=== PATIENT | female | born 1990 | race Caucasian/White ===

== ENCOUNTER → 2017-06-03 | Outpatient (CLI) | payer SELFPAY ==
--- NOTE | 2017-06-03 16:48 | RADIOLOGY REPORT (SQ) ---
EXAM DESCRIPTION: U/S OB 14+ TRNABD 1GES W/O DOP COMPLETED DATE/TIME: 06/03/2017 4:11 pm REASON FOR STUDY: ENCOUNTER FOR SUPERVISION OF OTHER NORMAL , SECOND TRIMESTER Z34.82 ENCO UNTER FOR SUPRVSN OF NORMAL , SECOND TRI COMPARISON: None. TECHNIQUE: Static and Dynamic grayscale imaging performed of gravid uterus using transabdominal appr oac. Additional selected color Doppler and spectral images recorded. All stored on PACS. LIMITATIONS: None. FINDINGS: EGA: 27 weeks 3 days CHRISTIAN: 08/30/2017 EFW: 985 +/ - 146 grams PERCENTILE: 31 ANTONIO: 12.1 cm PLACENTA: Anterior PRESENTATION: Cephalic. ANATOMY: HEART RATE: 143 beats per minute. FOUR CHAMBER HEART: Visualized. THREE VESSEL CORD: Yes. CORD INSERTION: Visualized. KIDNEYS AND BLADDER: Visualized. Appear normal. STOMACH: Visualized. Appears normal. SPINE: Normal as visualized. BRAIN AND LATERAL VENTRICLES: Visualized. Appear normal. OTHER: Apparent skin thickening the level of the cervical spine. MATERNAL ADNEXA: Maternal ovaries not visualized. CERVICAL LENGTH: In 0.5 cm. Closed. OTHER: No other significant finding. IMPRESSION: LIVING INTRAUTERINE . ESTIMATED GESTATIONAL AGE 27 WEEKS 3 DAYS APPARENT SKIN THICKENING AT THE LEVEL OF THE CERVICAL SPINE WHICH MAY BE POSITIONAL. RECOMMEND CORRE LATION WITH RISK FACTORS FOR CHROMOSOMAL ANOMALIES. NO ADDITIONAL VISUALIZED ANOMALIES. Trimester of : Second trimester - 13 weeks 1 day to 27 weeks 6 days. TECHNICAL DOCUMENTATION: JOB ID: [id number] [employer]- All Rights Reserved
== END ==
LOC: RAD 14:56
PROVIDERS: ATTEND Nurse Practitioner Women's Health
DX: Z34.82 Encounter for supervision of other normal pregnancy, second trimester (principal)
CPT/HCPCS: 76805

== ENCOUNTER → 2017-08-16 | Outpatient (CLI) | payer SELFPAY ==
--- NOTE | 2017-08-16 15:42 | RADIOLOGY REPORT (SQ) ---
EXAM DESCRIPTION: U/S OB 14+ TRNABD 1GES W/O DOP COMPLETED DATE/TIME: 08/16/2017 3:08 pm REASON FOR STUDY: ENOUNTER FOR SUERVISION OF OTHER NORMAL , THIRD SEMESTER Z34.83 ENCOUNTE R FOR SUPRVSN OF NORMAL , THIRD TRIM COMPARISON: OB ultrasound 06/03/2017 TECHNIQUE: Limited Static and Dynamic grayscale imaging performed of gravid uterus using transabdomi nal approach. Additional selected color Doppler and spectral images recorded. All stored on PACS. LIMITATIONS: None. FINDINGS: EGA: By multiple measurements, the estimated age is 36 weeks 3 days, estimated weigh t 2800 g. Please note that there is possible IUGR, abdominal circumference measures 35 weeks 3 days, BPD measures 37 weeks 3 days. CHRISTIAN: By today's ultrasound, 09/10/2017 EFW: 2,800 grams PERCENTILE: 12 percentile ANTONIO: 10 cm PLACENTA: Fundal GRADE: III PRESENTATION: Cephalic. CERVICAL LENGTH: Not well seen. OTHER: No other significant finding. IMPRESSION: LIVING INTRAUTERINE . ESTIMATED GESTATIONAL AGE by today's measurements is 36 weeks 3 days With a 2 week difference between BPD and abdominal circumference, question IUGR Trimester of : Third trimester - 28 weeks to delivery. TECHNICAL DOCUMENTATION: JOB ID: [id number] [employer]- All Rights Reserved
== END ==
LOC: RAD 14:28
PROVIDERS: ATTEND Nurse Practitioner Women's Health
DX: Z34.83 Encounter for supervision of other normal pregnancy, third trimester (principal)
CPT/HCPCS: 76805

== ENCOUNTER 2017-09-04 17:27 | Inpatient (IN) | payer SELFPAY ==
[2017-09-04] MEDS ORDERED: RINGERS SOLUTION,LACTATED 1,000 ML IV PRN (17:45)
[2017-09-04] MEDS ORDERED: RINGERS SOLUTION,LACTATED 300 ML IV ONE (17:45)
[2017-09-04] MEDS ORDERED: OXYTOCIN/NORMAL SALINE 20 UNIT/1,000 ML RTUINJ IV PRN (17:45)
[2017-09-04 18:31] LABS: HEMATOCRIT 33.1 % (36.0-47.0); HEMOGLOBIN 11.4 g/dL (12.0-15.5); MEAN CORPUSCULAR HEMOGLOBIN 31.4 pg (27.0-33.4); MEAN CORPUSCULAR HGB CONC 34.4 g/dL (32.0-36.0); MEAN CORPUSCULAR VOLUME 91 fl (80-97); PLATELET COUNT 371 10^3/uL (150-450); RED BLOOD COUNT 3.63 10^6/uL (3.72-5.28); RED CELL DISTRIBUTION WIDTH 13.4 % (11.5-14.0); WHITE BLOOD COUNT 12.4 10^3/uL (4.0-10.5)
[2017-09-04 18:38] LABS: AMORPHOUS SEDIMENT,URINE TRACE /HPF; APPEARANCE,URINE CLOUDY; BILIRUBIN,URINE NEGATIVE (NEGATIVE); COLOR,URINE YELLOW; GLUCOSE, URINE NEGATIVE (NEGATIVE); KETONES,URINE NEGATIVE (NEGATIVE); LEUKOCYTE ESTERASE,URINE LARGE (NEGATIVE); NITRITE,URINE NEGATIVE (NEGATIVE); PROTEIN,URINE NEGATIVE (NEGATIVE); URINE SPECIFIC GRAVITY 1.009; UROBILINOGEN,URINE NEGATIVE mg/dL (<2.0)
[2017-09-04] MEDS ORDERED: VANCOMYCIN HCL INJ 1000 MG VIAL ONE (18:41)
[2017-09-04 18:46] LABS: URINE AMPHETAMINES SCREEN NEGATIVE; URINE BARBITURATES SCREEN NEGATIVE; URINE BENZODIAZEPINES SCREEN NEGATIVE; URINE COCAINE SCREEN NEGATIVE; URINE METHADONE SCREEN NEGATIVE; URINE PHENCYCLIDINE SCREEN NEGATIVE
[2017-09-04 18:55] LABS: URINE MARIJUANA (THC) SCREEN UNCONFIRMED POSITIVE
[2017-09-04] MEDS ORDERED: CITRIC ACID/SODIUM CITRATE ORAL SOLN 15 ML UDCUP PO ONE (18:59)
[2017-09-04] MEDS ORDERED: VANCOMYCIN HCL 1,000 MG in DEXTROSE 5%-WATER 250 ML IV ONE (19:00)
[2017-09-04] MEDS ORDERED: CITRIC ACID/SODIUM CITRATE ORAL SOLN 15 ML UDCUP ONE (19:00)
[2017-09-04 19:03] LABS: ABSOLUTE LYMPHOCYTES# (MANUAL) 1.7 10^3/uL (0.5-4.7); ABSOLUTE MONOCYTES # (MANUAL) 0.9 10^3/uL (0.1-1.4); ABSOLUTE NEUTROPHILS# (MANUAL) 9.5 10^3/uL (1.7-8.2); BAND NEUTROPHILS % (MANUAL) 2 % (3-5); BASOPHILS % (MANUAL) 0 % (0-2); EOSINOPHILS % (MANUAL) 2 % (0-6); LYMPHOCYTES % (MANUAL) 14 % (13-45); METAMYELOCYTES % (MANUAL) 1 % (0); MONOCYTES % (MANUAL) 7 % (3-13); SEGMENTED NEUTROPHILS % (MAN) 74 % (42-78); TOTAL CELLS COUNTED 100
[2017-09-04 19:05] LABS: PLATELET COMMENT ADEQUATE; TOXIC GRANULATION SLIGHT
[2017-09-04] MEDS ORDERED: ONDANSETRON HCL INJ/PF 4 MG/2 ML SDV IV ONE (20:07)
[2017-09-04] MEDS ORDERED: ONDANSETRON HCL INJ/PF 4 MG/2 ML SDV ONE (20:08)
[2017-09-04] MEDS ORDERED: FENTANYL CITRATE INJ/PF 100 MCG/2 ML AMPUL ONE (21:06)
[2017-09-04] MEDS ORDERED: PHENYLEPHRINE HCL INJ/PF 10 MG/1 ML SDV ONE (21:06)
[2017-09-04] MEDS ORDERED: EPHEDRINE SULFATE INJ 50 MG/1 ML AMPULE ONE (21:06)
[2017-09-04] MEDS ORDERED: BUPIVACAINE HCL 0.25 % INJ/PF (2.5 MG/1 ML) 30 ML VIAL ONE (21:07)
[2017-09-04] MEDS ORDERED: FENTANYL/BUPIVACAINE/NS/PF 200 MCG/100 ML RTUINJ EPI ONE (21:07)
[2017-09-04] MEDS ORDERED: OXYTOCIN/NORMAL SALINE 20 UNIT/1,000 ML RTUINJ ONE (21:08)
[2017-09-04] MEDS ORDERED: LIDOCAINE 1% INJ-PF (10 MG/ML) 30 ML SDV ONE (21:08)
[2017-09-04] MEDS ORDERED: MISOPROSTOL 0.2 MG TABLET ONE (21:08)
[2017-09-04] MEDS ORDERED: MAG HYDROX/AL HYDROX/SIMETH SUSP 30 ML UDCUP ONE (21:26)
[2017-09-05] MEDS ORDERED: PROMETHAZINE HCL INJ 25 MG/1 ML VIAL IV PRN (03:08)
[2017-09-05] MEDS ORDERED: ACETAMINOPHEN 650 MG SUPP.RECT PR PRN (03:08)
[2017-09-05] MEDS ORDERED: NA PHOS,M-B/NA PHOS,DI-BA (ADULT) 133 ML ENEMA PR PRN (03:08)
[2017-09-05] MEDS ORDERED: BENZOCAINE/MENTHOL AEROSOL SPRAY 56 ML TOP PRN (03:08)
[2017-09-05] MEDS ORDERED: GLYCERIN/WITCH HAZEL LEAF 1 EACH MED..PAD TP PRN (03:08)
[2017-09-05] MEDS ORDERED: MEASLES,MUMPS&RUBELLA VACC/PF 0.5 ML VIAL SUBCUT PRN (03:08)
[2017-09-05] MEDS ORDERED: MAGNESIUM HYDROXIDE SUSP 30 ML UDCUP PO PRN (03:08)
[2017-09-05] MEDS ORDERED: ZOLPIDEM TARTRATE 5 MG TABLET PO PRN (03:08)
[2017-09-05] MEDS ORDERED: PROMETHAZINE HCL 25 MG TABLET PO PRN (03:08)
[2017-09-05] MEDS ORDERED: DIPH/PERTUSS(ACELL)/TETANUS VAC/PF 0.5 ML SYR (>=10YO) IM PRN (03:08)
[2017-09-05] MEDS ORDERED: PROMETHAZINE HCL 25 MG SUPP.RECT PR PRN (03:08)
[2017-09-05] MEDS ORDERED: PSEUDOEPHEDRINE HCL 30 MG TABLET PO PRN (03:08)
[2017-09-05] MEDS ORDERED: DIBUCAINE 1% OINTMENT 28 GM TP PRN (03:08)
[2017-09-05] MEDS ORDERED: DIPHENHYDRAMINE HCL 25 MG CAPSULE PO PRN (03:08)
[2017-09-05] MEDS ORDERED: ACETAMINOPHEN WITH CODEINE #3 TABLET PO PRN ×2 (03:08)
[2017-09-05] MEDS ORDERED: OXYTOCIN/NORMAL SALINE 20 UNIT/1,000 ML RTUINJ IV PRN (03:08)
[2017-09-05] MEDS: IBUPROFEN 800 MG TABLET PO SCH ×3 (04:29→21:50)
[2017-09-05] MEDS ORDERED: IBUPROFEN 800 MG TABLET ONE (04:29)
--- NOTE | 2017-09-05 04:38 | Delivery Summary ---
Del Sum A-C Datetime Report Generated by CPN: 09/05/2017 04:38 DELIVERY PERSONNEL DELIVERY PERSONNEL: [id number] Delivery Doctor:: Mariya Fernandez MD Anesthesiologist:: Veronica Luna MD Labor and Delivery Nurse:: Lu Zuluaga RNregistered dental assistant rda Nurse:: Haydee Ivy RN Service Desk Technician/GRAND SCRIBE: José Rodríguez, GRAND SCR[employer]E MATERNAL INFORMATION Delivery Anesthesia: Epidural Medications After Delivery: Pitocin Drip 20 Units/1000ml NSS Estimated Blood Loss (ml): 250 Maternal Complications: None Provider Comments: VMI delivered in TARA presentation. No nuchal cord. SHoulders and body delivered without difficulty. Cord doubly clamped and cut and infant to maternal abdomen for NRP. Placenta delivered intact spontaneously. FF at U. No perineal lacerations. Good hemostasis. Mother and baby stable upon provider leaving the room. LABOR SUMMARY EDC: 08/25/2017 00:00 No. Babies in Womb: 1 Attempted: No Labor Anesthesia: Epidural LABOR INFORMATION Reason for Induction: Post Dates Onset of Labor: 09/04/2017 22:36 Complete Dilatation: 09/05/2017 02:24 Oxytocin: Induction Group B Beta Strep: Positive Antibiotics # of Doses: 1 Antibiotics Time of Last Dose: 1849 Name of Antibiotic Given: Vancomycin Steroids Given: None Reason Steroids Not Administered: Not Applicable MEMBRANES Membranes Rupture Method: Spontaneous Rupture of Membranes: 09/05/2017 02:48 Length of Rupture (hr): 0.15 Amniotic Fluid Color: Clear Amniotic Fluid Amount: Small Amniotic Fluid Odor: Normal STAGES OF LABOR Stage 1 hr: 3 Stage 1 min: 48 Stage 2 hr: 0 Stage 2 min: 33 Stage 3 hr: 0 Stage 3 min: 4 Total Time in Labor hr: 4 Total Time in Labor min: 25 VAGINAL DELIVERY Episiotomy: None Laceration #1: None Laceration Extension #1: N/A Laceration Repair: Not Applicable Sponge Count Correct: Yes Sharps Count Correct: Yes CSECTION DELIVERY Primary Indication: N/A Secondary Indication: N/A CSection Incidence: N/A Labor: N/A Elective: N/A CSection Incision: N/A BABY A INFORMATION Delivery Date/Time: 09/05/2017 02:57 Method of Delivery: Vaginal Born in Route : No : N/A Forceps: N/A Vacuum Extraction: N/A Shoulder Dystocia : No PRESENTATION/POSITION BABY A Presentation: Cephalic Cephalic Presentation: Vertex Vertex Position: Right Occipital Anterior Breech Presentation: N/A PLACENTA INFORMATION BABY A Placenta Delivery Time : 09/05/2017 03:01 Placenta Method of Delivery: Spontaneous Placenta Status: Delivered SCORES BABY A Heart Rate 1 min: >100 bpm Resp Effort 1 min: Good Cry Reflex Irritability 1 min: Cough or Sneeze or Pulls Away Muscle Tone 1 min: Active Motion Color 1 min: Body [place], Extremities Blue Resuscitation Effort 1 min: Tactile Stimulation SCORE 1 MIN: 9 Heart Rate 5 min: >100 bpm Resp Effort 5 min: Good Cry Reflex Irritability 5 min: Cough or Sneeze or Pulls Away Muscle Tone 5 min: Active Motion Color 5 min: Completely [place] Resuscitation Effort 5 min: Tactile Stimulation SCORE 5 MIN: 10 INFORMATION BABY A Gestational Age at Delivery: 41.4 Gestational Status: Late Term- 41- 41.6 Weeks Outcome : Liveborn Condition : Stable Infant Sex: Male IDENTIFICATION BABY A Infant Verification Date/Time: 09/05/2017 03:03 ID Band Number: [id number] Mother's Name Verified: Yes Infant RN Verifying Infant: S. Tejatibealindsayir, RN _ Martin Ivy, RN WEIGHT/LENGTH BABY A Birthweight (gm): 3625 Weight (lb): 8 Weight (oz): 0 Length (in): 19.50 Length (cm): 49.53 CORD INFORMATION BABY A No. Cord Vessels: 3 Nuchal Cord : N/A Nuchal Cord- Other: right compound hand Cord Blood Taken: Yes-For Eval (Mom's Blood Type - or O+) Suction: Mouth; Nose ASSESSMENT BABY A Complications: None Physical Findings at Delivery: Within Normal Limits Respirations: Appears Normal Skin to Skin: Yes Automation Clerk/ALS Called : No Infant Care By: Martin Ivy, RN Transferred To: Remains with Mother BABY B INFORMATION : N/A SIGNATURES Signature: Electronically signed by Mariya Fernandez MD ([facility]) on 09/05/2017 at 03:21 with User ID: [email or web address]
--- NOTE | 2017-09-05 05:06 | Admission Physical ---
Datetime Report Generated by CPN: 09/05/2017 05:06 CURRENT ADMISSION Chief Complaint: Uterine Contractions Indication for Induction: Postterm Indication for Induction: Term, Intrauterine ; No Active Labor; Intact Membranes Admit Plan: Admit to Unit; Initiate Labor Induction Protocol ALLERGIES Medication Allergies: Yes Medication Allergies: Penicillins/SC/Rash (09/04/2017); amoxicillin (09/04/2017) Medication Allergies: Penicillins/SC/Rash (07/03/2016); amoxicillin (07/03/2016) Latex: No Latex Allergies Food Allergies: none Environmental Allergies: none OBSTETRICAL HISTORY EDC: 08/25/2017 00:00 : 5 Para: 3 Term: 2 : 1 SAB: 0 IAB: 1 Ectopic: 0 Livin Cesareans: 0 VBACs: 0 Multiple Births: 0 Gestational Diabetes: No Rh Sensitization: No Incompetent Cervix: No JOYCELYN: No Infertility: No ART Treatment: No Uterine Anomaly: No IUGR: No Hx Previous C/S: No Macrosomia: No Hx Loss/Stillborn: No PIH: No Hx : No Placenta Previa/Abruption: No Depression/PP Depression: No PTL/PROM: Unknown Post Hemorrhage: Yes Current Procedures: Ultrasound; NST Obstetrical History Comments: Late PNC, cigarette smoker, Pre-E in 2010, cervical spine thickening, hx pre-term delivery, Pt states PPH and heavy clots with first SEE RECORDS Alcohol: No Marijuana : No Cocaine: No Other Illicit Drugs: No Cigarettes: Current Everyday Smoker. 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 Heart Disease: No Hosp/Surgery: Yes Autoimmune Disorder: No Anesthetic Complications: No Kidney Disease: No Abnormal Pap Smear: No Neuro/Epilepsy: No Psychiatric Disorders: No Other Medical Diseases: No Hepatitis/Liver Disease: No Significant Family History: No Varicosities/Phlebitis: No Trauma/Violence : No Thyroid Dysfunction: No Medical History Comments: Childbirth INFECTIOUS HISTORY Gonorrhea: No Genital Herpes: No Chlamydia: No Tuberculosis: No Syphilis: No Hepatitis: No HIV/AIDS Exposure: No Rash or Viral Illness: No HPV: No PHYSICAL EXAM General: Normal HEENT: Normal Neurologic: Normal Thyroid: Deferred Heart: Normal Lungs: Normal Breast: Deferred Back: Normal Abdomen: Normal Genitourinary Exam: Normal Extremities: Normal DTRs: Normal Pelvic Type: Adequate Vital Signs: Reviewed VAGINAL EXAM Dilatation: 5 Effacement: 90 Station: 1 Contraction Comments: irreg MEMBRANES Membranes: Intact FETUS A EGA: 41.3 Monitoring: External US FHR- Baseline: 125 Variability: Moderate 6-25bpm Accelerations: 15X15 Decelerations: None FHR Category: Category I Estimated Weight (gm): 2800 Presentation: Vertex Admit Comment: 26yo at 41+3ega by LMP giving CHRISTIAN 08/25/2017 and c/w US at 27+3ega. Late to care. + GBS. + 1/2 ppd smoker, H/o pre E in 2010. Desires BTL. Rubella NI. Cervical spine thickening noted on prior US - pt was referred to [facility] but never went. She was /+1 in office. 12 % EFFW on US 08/16. Due to Post CHRISTIAN with poss IUGR plan for IOL. Likely only need pitocin due to advanced cervical dilation. She desires epidural. Plan for Vancomycin due to GBS pos with PCN allergy and susceptibilities unknown. Anticipate PLANS FOR LABOR AND DELIVERY Labor and Delivery: None Pain Management: Epidural Feeding Preference: Formula Benefit of Breast Feed Discussed: Yes Circumcision: Yes INFORMED CONSENT Informed Consent Obtained: Vaginal Delivery; Risks, Benefits and Alternatives Discussed Signature: with User ID: [email or web address]
[2017-09-05] MEDS: PRENATAL VITAMIN W DHA CAPSULE PO SCH (09:17)
[2017-09-05] MEDS: FAMOTIDINE 20 MG TABLET PO SCH ×2 (09:18→21:49)
[2017-09-05] MEDS: SENNOSIDES/DOCUSATE 8.6-50 MG 1 EACH TABLET PO SCH (09:18)
[2017-09-05] MEDS: DOCUSATE SODIUM 100 MG CAPSULE PO SCH ×2 (09:18→18:44)
[2017-09-05] MEDS: FERROUS SULFATE 325 MG TABLET PO SCH ×2 (09:19→18:45)
[2017-09-05] MEDS ORDERED: VANCOMYCIN HCL 1,000 MG in DEXTROSE 5%-WATER 250 ML IV SCH (10:00)
--- NOTE | 2017-09-05 10:49 | PDOC PROGRESS REPORT ---
Subjective-OB Subjective: Post Delivery Day: 26 year old. Denies any needs at this time Physical Exam (OB) Vital Signs: Temp Pulse Resp BP Pulse Ox 98.3 F 98 15 93/67 L 98 09/05/17 08:47 09/05/17 08:47 09/05/17 08:47 09/05/17 08:47 09/05/17 08:47 Intake & Output 09/04/17 09/05/17 09/06/17 06:59 06:59 06:59 Weight 70.7 kg - Lochia Lochia Amount: Scant < 10 ml Lochia Color: Rubra/Red - Abdomen Description: Soft, Round Hernia Present: No Bowel Sounds: Normoactive Flatus Presence: Present Stool: No Fundal Description: Firm, Midline Fundal Height: u/u - u/2 Objective-Diagnostic Laboratory: 09/04/17 18:00 09/04/17 09/04/17 09/04/17 18:00 18:00 18:05 WBC 12.4 H RBC 3.63 L Hgb 11.4 L Hct 33.1 L MCV 91 MCH 31.4 MCHC 34.4 RDW 13.4 Plt Count 371 Seg Neutrophils % Not Reportable Lymphocytes % Not Reportable Monocytes % Not Reportable Eosinophils % Not Reportable Basophils % Not Reportable Absolute Neutrophils Not Reportable Absolute Lymphocytes Not Reportable Absolute Monocytes Not Reportable Absolute Eosinophils Not Reportable Absolute Basophils Not Reportable Urine Color YELLOW Urine Appearance CLOUDY Urine pH 8.0 Ur Specific [place] 1.009 Urine Protein NEGATIVE Urine Glucose (UA) NEGATIVE Urine Ketones NEGATIVE Urine Blood MODERATE H Urine Nitrite NEGATIVE Ur Leukocyte Esterase LARGE H Urine WBC (Auto) 28 Urine RBC (Auto) 1 Blood Type O POSITIVE Antibody Screen NEGATIVE
[2017-09-06] MEDS: IBUPROFEN 800 MG TABLET PO SCH ×3 (05:09→21:51)
[2017-09-06 08:36] LABS: HEMATOCRIT 31.2 % (36.0-47.0); HEMOGLOBIN 10.8 g/dL (12.0-15.5); MEAN CORPUSCULAR HEMOGLOBIN 31.9 pg (27.0-33.4); MEAN CORPUSCULAR HGB CONC 34.6 g/dL (32.0-36.0); MEAN CORPUSCULAR VOLUME 92 fl (80-97); PLATELET COUNT 274 10^3/uL (150-450); RED BLOOD COUNT 3.39 10^6/uL (3.72-5.28); RED CELL DISTRIBUTION WIDTH 13.2 % (11.5-14.0); WHITE BLOOD COUNT 10.5 10^3/uL (4.0-10.5)
--- NOTE | 2017-09-06 08:53 | PDOC PROGRESS REPORT ---
Subjective-OB Subjective: Post Delivery Day: 1 26 year old. Denies any needs at this time, states lochia is stable, pain well controlled, voiding without difficulty. Physical Exam (OB) Vital Signs: Temp Pulse Resp BP Pulse Ox 98.4 F 86 18 110/68 100 09/06/17 07:54 09/06/17 07:54 09/06/17 07:54 09/06/17 07:54 09/06/17 07:54 Intake & Output 09/05/17 09/06/17 09/07/17 06:59 06:59 06:59 Intake Total 240 Balance 240 Weight 70.7 kg - Lochia Lochia Amount: Scant < 10 ml Lochia Color: Rubra/Red - Abdomen Description: Soft, Round Hernia Present: No Fundal Description: Firm, Midline Fundal Height: u/u - u/2 Objective-Diagnostic Laboratory: 09/06/17 07:45 09/06/17 07:45 WBC 10.5 RBC 3.39 L Hgb 10.8 L Hct 31.2 L MCV 92 MCH 31.9 MCHC 34.6 RDW 13.2 Plt Count 274 Assessment and Plan(PN) - Assessment and Plan (1) Anemia affecting Qualifiers: Trimester: third trimester Qualified Code(s): O99.013 - Anemia complicating , third trimester Is this a current diagnosis for this admission?: Yes Plan: ferrous sulfate increase dietary iron (2) Vaginal delivery Is this a current diagnosis for this admission?: Yes Plan: routine pp care - Time Spent with Patient Time with patient: Less than 15 minutes Critical Time spent with patient: Less than 15 minutes Medications reviewed and adjusted accordingly: Yes - Disposition Anticipated Discharge: Home Within: within 24 hours
[2017-09-06] MEDS: PRENATAL VITAMIN W DHA CAPSULE PO SCH (11:39)
[2017-09-06] MEDS: DOCUSATE SODIUM 100 MG CAPSULE PO SCH ×2 (11:39→18:39)
[2017-09-06] MEDS: FERROUS SULFATE 325 MG TABLET PO SCH ×2 (11:40→18:40)
[2017-09-06] MEDS: FAMOTIDINE 20 MG TABLET PO SCH ×2 (11:40→21:51)
[2017-09-06] MEDS: SENNOSIDES/DOCUSATE 8.6-50 MG 1 EACH TABLET PO SCH (11:40)
[2017-09-07] MEDS: IBUPROFEN 800 MG TABLET PO SCH (06:13)
[2017-09-07 08:19] VITALS: BP 116/59
--- NOTE | 2017-09-07 09:26 | PDOC DISCHARGE SUMMARY ---
Final Diagnosis Discharge Date: 09/07/17 - Final Diagnosis (1) Anemia affecting Is this a current diagnosis for this admission?: Yes (2) Vaginal delivery Is this a current diagnosis for this admission?: Yes Discharge Data - Discharge Medication Prescriptions: Docusate Sodium [Colace 100 mg Capsule] 100 mg PO BID #60 capsule Ferrous Sulfate [Feosol 325 mg Tablet] 325 mg PO BID #60 tablet Ibuprofen [Motrin 800 mg Tablet] 800 mg PO Q8 #60 tablet Home Medications: Vit/Iron Fum/Folic AC [ Tablet] 1 each PO DAILY 09/04/17 Docusate Sodium [Colace 100 mg Capsule] 100 mg PO BID #60 capsule 09/07/17 Ferrous Sulfate [Feosol 325 mg Tablet] 325 mg PO BID #60 tablet 09/07/17 Ibuprofen [Motrin 800 mg Tablet] 800 mg PO Q8 #60 tablet 09/07/17 Gestational Age: 41.4 Reason(s) for Admission: Onset of Labor, Group B Strep Positive Procedures: NST Intrapartum Procedure(s): Spontaneous Vaginal Delivery - Data Baby 1 Male at 1 minute: 9 at 5 minutes: 10 Weight: 3625 kg Home with Mother: Yes Complications: No - Diagnosis Test Laboratory: Temp Pulse Resp BP Pulse Ox 97.8 F 83 16 116/59 L 96 09/07/17 07:50 09/07/17 07:50 09/07/17 07:50 09/07/17 07:50 09/07/17 07:50 09/04/17 09/04/17 09/06/17 18:00 18:05 07:45 RBC 3.63 L 3.39 L Hgb 11.4 L 10.8 L Hct 33.1 L 31.2 L Urine Opiates Screen NEGATIVE - Discharge information/Instructions Discharge Activity: Activity As Tolerated, Pelvic Rest, No tub bath Discharge Diet: Regular Disposition: HOME, SELF-CARE Follow up with: [facility] in: 4, Weeks
[2017-09-07] MEDS: SENNOSIDES/DOCUSATE 8.6-50 MG 1 EACH TABLET PO SCH (10:22)
[2017-09-07] MEDS: FAMOTIDINE 20 MG TABLET PO SCH (10:22)
[2017-09-07] MEDS: DOCUSATE SODIUM 100 MG CAPSULE PO SCH (10:22)
[2017-09-07] MEDS: FERROUS SULFATE 325 MG TABLET PO SCH (10:22)
[2017-09-07] MEDS: PRENATAL VITAMIN W DHA CAPSULE PO SCH (10:22)
== END 2017-09-07 12:44 | disposition home or self-care (01) | DRG 775 ==
LOC: LR 17:27 → 2S 09-05 05:04
PROVIDERS: ADMIT Student in an Organized Health Care Education/Training Program; ATTEND Student in an Organized Health Care Education/Training Program
PROC: 10E0XZZ Delivery of Products of Conception, External Approach (ICD-10-PCS; principal; 2017-09-05)
DX: O48.0 Post-term pregnancy (principal); Z3A.41 41 weeks gestation of pregnancy; O99.824 Streptococcus B carrier state complicating childbirth; O99.334 Smoking (tobacco) complicating childbirth; F17.210 Nicotine dependence, cigarettes, uncomplicated; O32.2XX0 Maternal care for transverse and oblique lie, not applicable or unspecified; O90.81 Anemia of the puerperium; D64.9 Anemia, unspecified; Z37.0 Single live birth
CPT/HCPCS: 36415; 80307; 81001; 85025; 85027; 86592; 86850; 86900; 86901; G0480; J2370; J2405; J2590; J3010; J3370; J3490; J7060

== ENCOUNTER 2019-01-18 00:05 | Emergency (ER) | payer OTHER, MEDICAID ==
[2019-01-18] MEDS ORDERED: DIPH/PERTUSS(ACELL)/TETANUS VAC/PF 0.5 ML SYR (>=10YO) IM ONE (01:02)
[2019-01-18] MEDS ORDERED: OXYCODONE-ACETAMINOPHEN 5-325 MG TABLET PO ONE ×2 (01:08→01:17)
[2019-01-18] MEDS ORDERED: ONDANSETRON 4 MG TAB.RAPDIS PO ONE (01:08)
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
[2019-01-18 01:38] LABS: ABSOLUTE BASOPHILS # (AUTO) 0.1 10^3/uL (0.0-0.2); ABSOLUTE EOSINOPHILS # (AUTO) 0.1 10^3/uL (0.0-0.6); ABSOLUTE LYMPHOCYTES (AUTO) 1.5 10^3/uL (0.5-4.7); ABSOLUTE MONOCYTES (AUTO) 0.6 10^3/uL (0.1-1.4); BASOPHILS % (AUTO) 0.3 % (0-2); EOSINOPHILS % (AUTO) 0.5 % (0-6); HEMATOCRIT 39.9 % (36.0-47.0); HEMOGLOBIN 13.5 g/dL (12.0-15.5); LYMPHOCYTES % (AUTO) 8.4 % (13-45); MEAN CORPUSCULAR HEMOGLOBIN 30.7 pg (27.0-33.4); MEAN CORPUSCULAR HGB CONC 33.8 g/dL (32.0-36.0); MEAN CORPUSCULAR VOLUME 91 fl (80-97); MONOCYTES % (AUTO) 3.6 % (3-13); PLATELET COUNT 390 10^3/uL (150-450); RED BLOOD COUNT 4.39 10^6/uL (3.72-5.28); RED CELL DISTRIBUTION WIDTH 13.5 % (11.5-14.0); SEGMENTED NEUTROPHILS % (AUTO) 87.2 % (42-78); TOTAL CELLS COUNTED % (AUTO) 100 %; WHITE BLOOD COUNT 17.2 10^3/uL (4.0-10.5)
[2019-01-18 01:56] LABS: ANION GAP 12 (5-19); BLOOD UREA NITROGEN 14 mg/dL (7-20); CALCIUM 9.8 mg/dL (8.4-10.2); CARBON DIOXIDE 29 mmol/L (22-30); CHLORIDE 104 mmol/L (98-107); GLUCOSE 105 mg/dL (75-110); POTASSIUM 3.9 mmol/L (3.6-5.0); SODIUM 144.5 mmol/L (137-145)
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
[2019-01-18] MEDS ORDERED: KETOROLAC TROMETHAMINE INJ/PF 30 MG/1 ML SDV IV ONE (03:16)
[2019-01-18] MEDS ORDERED: LIDOCAINE 5% (700 MG) TRANSDERMAL ADH..PATCH TP ONE (03:17)
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
[2019-01-18 04:43] VITALS: BP 116/65
== END 2019-01-18 04:43 | disposition home or self-care (01) ==
LOC: ER 00:05
DX: S51.011A Laceration without foreign body of right elbow, initial encounter (principal); S81.011A Laceration without foreign body, right knee, initial encounter; S20.311A Abrasion of right front wall of thorax, initial encounter; M25.511 Pain in right shoulder; Z88.0 Allergy status to penicillin; M54.2 Cervicalgia; V48.6XXA Car passenger injured in noncollision transport accident in traffic accident, initial encounter; Z23 Encounter for immunization; F17.200 Nicotine dependence, unspecified, uncomplicated
CPT/HCPCS: 99284; 36415; 85025; 81025; 80048; 73030; 71260; 72125; 90715; S0119; J1885

== ENCOUNTER 2020-05-08 14:15 | Emergency (ER) | payer MEDICAID ==
[2020-05-08 14:23] VITALS: BP 105/73
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
== END 2020-05-08 14:38 | disposition home or self-care (01) ==
LOC: ER 14:15
DX: K02.9 Dental caries, unspecified (principal); K08.89 Other specified disorders of teeth and supporting structures; F17.200 Nicotine dependence, unspecified, uncomplicated
CPT/HCPCS: 99283

== ENCOUNTER 2020-08-31 19:01 | Emergency (ER) | payer MEDICAID ==
[2020-08-31 19:41] LABS: ABSOLUTE BASOPHILS # (AUTO) 0.2 10^3/uL (0.0-0.2); ABSOLUTE EOSINOPHILS # (AUTO) 0.3 10^3/uL (0.0-0.6); ABSOLUTE MONOCYTES (AUTO) 0.8 10^3/uL (0.1-1.4); ABSOLUTE NEUT (AUTO) 14.4 10^3/uL (1.7-8.2); BASOPHILS % (AUTO) 0.9 % (0-2); EOSINOPHILS % (AUTO) 1.4 % (0-6); HEMATOCRIT 38.5 % (36.0-47.0); HEMOGLOBIN 13.1 g/dL (12.0-15.5); LYMPHOCYTES % (AUTO) 11.4 % (13-45); MEAN CORPUSCULAR HEMOGLOBIN 29.5 pg (27.0-33.4); MEAN CORPUSCULAR HGB CONC 34.2 g/dL (32.0-36.0); MEAN CORPUSCULAR VOLUME 86 fl (80-97); MONOCYTES % (AUTO) 4.5 % (3-13); PLATELET COUNT 657 10^3/uL (150-450); RED BLOOD COUNT 4.45 10^6/uL (3.72-5.28); RED CELL DISTRIBUTION WIDTH 15.3 % (11.5-14.0); SEGMENTED NEUTROPHILS % (AUTO) 81.8 % (42-78); TOTAL CELLS COUNTED % (AUTO) 100 %; WHITE BLOOD COUNT 17.6 10^3/uL (4.0-10.5)
[2020-08-31 19:57] LABS: ALBUMIN 4.2 g/dL (3.5-5.0); ALKALINE PHOSPHATASE 119 U/L (38-126); ANION GAP 8 (5-19); ASPARTATE AMINO TRANSFERASE 19 U/L (14-36); BILIRUBIN,DIRECT 0.2 mg/dL (0.0-0.4); BILIRUBIN,TOTAL 0.3 mg/dL (0.2-1.3); BLOOD UREA NITROGEN 16 mg/dL (7-20); CALCIUM 9.9 mg/dL (8.4-10.2); CARBON DIOXIDE 29 mmol/L (22-30); CHLORIDE 102 mmol/L (98-107); GLUCOSE 110 mg/dL (75-110); POTASSIUM 4.7 mmol/L (3.6-5.0); TOTAL PROTEIN 7.2 g/dL (6.3-8.2)
[2020-08-31] MEDS ORDERED: OXYCODONE-ACETAMINOPHEN 5-325 MG TABLET PO ONE (20:51)
[2020-08-31] MEDS ORDERED: NORMAL SALINE 1000 ML 1,000 ML IV ONE (20:59)
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
[2020-08-31 21:36] LABS: AMORPHOUS SEDIMENT,URINE 1+ /HPF; APPEARANCE,URINE TURBID; BILIRUBIN,URINE NEGATIVE (NEGATIVE); COLOR,URINE YELLOW; GLUCOSE, URINE NEGATIVE (NEGATIVE); KETONES,URINE NEGATIVE (NEGATIVE); LEUKOCYTE ESTERASE,URINE LARGE (NEGATIVE); NITRITE,URINE NEGATIVE (NEGATIVE); PROTEIN,URINE 30 mg/dL (NEGATIVE); URINE SPECIFIC GRAVITY 1.018; UROBILINOGEN,URINE NEGATIVE mg/dL (<2.0)
[2020-08-31] MEDS ORDERED: KETOROLAC TROMETHAMINE INJ/PF 30 MG/1 ML SDV IV ONE (23:20)
--- NOTE | 2020-08-31 23:26 | RADIOLOGY REPORT (SQ) ---
EXAM DESCRIPTION: Site: CT ABD/PELVIS WITH IV ONLY RP: CT ABDOMEN PELVIS WITH IV CONTRAST CLINICAL HISTORY: 29 years Female; suprapubic pain at incision(SURGERY WAS IN FEBRUARY 2020) elevated wbc 17.6; TECHNIQUE: CT of the abdomen and pelvis using intravenous contrast. All CT scans at this facility use dose modulation, iterative reconstruction, and/or weight based dosing when appropriate to reduce radiation dose to as low as reasonably achievable. COMPARISON: None. FINDINGS: Abdomen: Stomach: No significant distention or surrounding edema. Liver:No focal lesions. No intrahepatic ductal distention. Gallbladder:Nondistended Pancreas:Within normal limits Spleen:Within normal limits Right kidney:No hydronephrosis. No focal lesion. Left kidney:No hydronephrosis. No focal lesion. Adrenal glands:Within normal limits Vascular structures:Within normal limits No acute inflammatory changes in the anterior abdominal wall. No focal fluid collections. Pelvis: Small bowel:No significant distention. Appendix:Within normal limits Colon: Moderate diffuse fecal retention with mild distention. No acute pericolonic edema. No free intraperitoneal fluid or air. Bones: No acute bone findings. Bladder: Unremarkable. No pelvic mass or adenopathy. IMPRESSION: 1. No acute findings 2. No acute inflammatory changes in the anterior abdominal wall. No evidence for abscess. 3. Moderate diffuse colonic fecal retention, but no small bowel distention.
[2020-09-01] MEDS ORDERED: NITROFURANTOIN MONOHYD/M-CRYST 100 MG CAPSULE PO ONE (00:02)
[2020-09-01] MEDS ORDERED: MAGNESIUM CITRATE 296 ML BOTTLE PO ONE (00:02)
[2020-09-01 00:20] VITALS: BP 152/107
== END 2020-09-01 00:21 | disposition home or self-care (01) ==
LOC: ER 19:01
DX: N30.00 Acute cystitis without hematuria (principal); K59.00 Constipation, unspecified; Z87.891 Personal history of nicotine dependence; Z88.0 Allergy status to penicillin
CPT/HCPCS: 99285; 96361; 96374; 36415; 87086; 84702; 83690; 85025; 87088; 80053; 81001; 74177; J3490 ×2; J1885; J7030; J8499